=== PATIENT | male | born 1960 | race Caucasian/White ===

== ENCOUNTER 2017-11-22 20:10 | Emergency (ER) ==
[2017-11-22 20:31] VITALS: TEMP 97.8; BMI 30.7
[2017-11-22] MEDS ORDERED: CARDIZEM INJ ONE (20:51)
--- NOTE | 2017-11-22 20:52 | ED.PDOC ---
General ED Provider: Dr. KRIS POLO-ER Chief Complaint: Shortness of Air Stated Complaint: im sob for the past few days Time Seen by Physician: 20:50 Mode of Arrival: Walk-In Information Source: Patient Exam Limitations: No limitations Nursing and Triage Documentation Reviewed and Agree: Yes Does patient meet sepsis criteria?: No System Inflammatory Response Syndrome: Not Applicable Sepsis Protocol: For patient's 13 years and over: Temp is 96.8 and below OR 101 and greater Pulse >90 BPM Resp >20/minute Acutely Altered Mental Status Are patient's symptoms suggestive of a new infection, such as: -Pneumonia -Skin, Soft Tissue -Endocarditis -UTI -Bone, Joint Infection -Implantable Device -Acute Abdominal Infection -Wound Infection -Meningitis -Blood Stream Catheter Infection -Unknown Cardiovascular Complaint Exam - Palpitations Complaint/Exam Onset/Duration: 3 days Symptoms Are: Still present Timing: Constant Initial Severity: Mild Current Severity: Moderate Character: Reports: Fast, Irregular, Pounding Aggravating: Reports: None Alleviating: Reports: None Associated Signs and Symptoms: Reports: Shortness of breath Review of Systems - Review Of Systems Constitutional: Reports: No symptoms Eyes: Reports: No symptoms Ears, Nose, Mouth, Throat: Reports: No symptoms Respiratory: Reports: Short of air Cardiac: Reports: No symptoms GI: Reports: No symptoms : Reports: No symptoms Musculoskeletal: Reports: No symptoms Skin: Reports: No symptoms Neurological: Reports: No symptoms Endocrine: Reports: No symptoms Hematologic/Lymphatic: Reports: No symptoms All Other Systems: Reviewed and Negative Past Medical History - Past Medical History Previously Healthy: Yes Endocrine: Reports: Unknown Cardiovascular: Reports: Unknown Respiratory: Reports: Unknown Hematological: Reports: Unknown Gastrointestinal: Reports: Unknown Genitourinary: Reports: Unknown Neuro/Psych: Reports: Unknown Musculoskeletal: Reports: Unknown Cancer: Reports: Unknown - Surgical History General Surgical History: Reports: Unknown - Family History Family History: Reports: Unknown - Social History Smoking Status: Former smoker Hx Substance Use: No Alcohol Screening: Occasionally - Immunizations Tetanus Shot up to Date: (UNKNOWN) Physical Exam - Physical Exam Appearance: Well-appearing Eyes: UMER, EOMI, Conjunctiva clear ENT: Ears normal, Nose normal, Oropharynx normal Neck: Supple Respiratory: Airway patent, Breath sounds clear, Breath sounds equal, Respirations nonlabored Cardiovascular: RRR GI/: Soft, Nontender, No masses, Bowel sounds normal, No Organomegaly Musculoskeletal: Normal strength, ROM intact, No edema, No calf tenderness Skin: Warm, Dry, Normal color Neurological: Sensation intact, Motor intact, Reflexes intact, Cranial nerves intact, Alert, Oriented Psychiatric: Affect appropriate, Mood appropriate, Anxious Interpretation - EKG Interpretation Time of EKG #1: 21:18 Rate: Tachy Rhythm: Other Jewell: NL Interpretation: afib wtih rvr Physician Notification - Case Discussed Physician Notified: dr [email or web address] Time of Notification: 21:45 Critical Care Note - Critical Care Note Total Time (mins): 30 Course - Course Hematology/Chemistry: 11/22/17 20:42 11/22/17 20:42 Orders, Labs, Meds: Lab Review 11/22/17 11/22/17 20:42 20:42 WBC 11.71 H RBC 5.24 Hgb 14.9 Hct 45.3 MCV 86.5 MCH 28.4 MCHC 32.9 RDW Coeff of Deo 14.4 Plt Count 257 Immature Gran % (Auto) 0.4 Neut % (Auto) 59.2 Lymph % (Auto) 25.4 [place] % (Auto) 12.3 H Eos % (Auto) 1.9 Baso % (Auto) 0.8 Immature Gran # (Auto) 0.1 Neut # (Auto) 6.9 Lymph # (Auto) 3.0 [place] # (Auto) 1.4 Eos # (Auto) 0.2 Baso # (Auto) 0.1 Sodium 142 Potassium 4.3 Chloride 109 H Carbon Dioxide 23 Anion Gap 14.3 BUN 19 H Creatinine 0.75 Estimated GFR (MDRD) 108.00 BUN/Creatinine Ratio 25.33 Glucose 96 Calcium 9.3 Total Bilirubin 0.6 AST 53 H ALT 67 Alkaline Phosphatase 126 Total Protein 7.2 Albumin 3.5 Globulin 3.7 Albumin/Globulin Ratio 0.95 Orders Category Date Time Status EKG-(ED ONLY) Stat CARDIO 11/22/17 20:39 Completed TRANSFER TO OUTSIDE FACILITY .TO [facility] 11/22/17 20:53 Active (ROBLESBHAVANI) WRITE TRANSFER/SBAR NOTE ONCE CARE 11/22/17 20:53 Active DISCHARGE ASSESSMENT ONCE DISCHARGE 11/22/17 20:53 Active WRITE DISCHARGE NOTE ONCE DISCHARGE 11/22/17 20:53 Active IV [ED IV/MEDIPORT/POWERPORT] .ONCE EMERGENCY 11/22/17 20:40 Active B-TYPE NATRIURETIC PEPTIDE Stat LAB 11/22/17 20:42 Received CBC W/ AUTO DIFF Stat LAB 11/22/17 20:42 Completed COMPREHENSIVE METABOLIC PANEL Stat LAB 11/22/17 20:42 Completed CREATINE KINASE Stat LAB 11/22/17 20:42 Received D-DIMER Stat LAB 11/22/17 20:42 Received FREE T4 (FREE THYROXINE) Stat LAB 11/22/17 20:42 Received TROPONIN I Stat LAB 11/22/17 20:42 Received TSH [THYROID STIMULATING HORMONE] Stat LAB 11/22/17 20:42 Received 0.9 % Sodium Chloride [Saline Flush] MEDS 11/22/17 20:40 Ordered 1 syr IVF PRN PRN 0.9 % Sodium Chloride [Sodium Chloride] 100 ml MEDS 11/22/17 21:00 Ordered Diltiazem HCl Inj [Cardizem Inj] 125 mg IV 10 mg/hr Diltiazem HCl Inj [Cardizem Inj] MEDS 11/22/17 20:51 Discontinued 150 mg .ROUTE .STK-MED ONE CXR [CHEST, 1V AP ONLY] Stat RADS 11/22/17 20:41 Taken Medications Generic Name Dose Route Start Last Admin Trade Name Freq PRN Reason Stop Dose Admin Diltiazem HCl 125 mg/ Sodium 125 mls @ 10 mls/hr 11/22/17 21:00 11/22/17 21: 01 Chloride IV 10 mg/hr .[id number] JACINDA 10 mls/hr Administration Protocol 10 MG/HR Sodium Chloride 1 syr 11/22/17 20:40 11/22/17 20:59 Saline Flush IVF 1 syr PRN PRN Administration To flush IV Vital Signs: Temp Pulse Resp BP Pulse Ox 11/22/17 21:01 163 H 20 172/120 H 11/22/17 20:11 97.8 F 83 28 H 152/112 H 96 INDRE Risk Score INDER Risk Score: Risk Score Odds of by 30D 0 0.1 (0.1-0.2) 1 0.3 (0.2-0.3) 2 0.4 (0.3-0.5) 3 0.7 (0.6-0.9) 4 1.2 (1.0-1.5) 5 2.2 (1.9-2.6) 6 3.0 (2.5-3.6) 7 4.8 (3.8-6.1) Departure - Departure Time of Disposition: 20:52 Disposition: TSF SHORT-TRM HOSP Discharge Problem: Atrial fibrillation Qualifiers: Atrial fibrillation type: unspecified Qualified Code(s): I48.91 - Unspecified atrial fibrillation Instructions: A-fib (Atrial Fibrillation) (ED) Condition: Fair Pt referred to PMD for follow-up: No IPMP verified?: No Allergies/Adverse Reactions: Allergies No Known Drug Allergies Adverse Reaction (Verified 11/22/17 20:22) Home Medications: Ambulatory Orders Naproxen Sodium [Aleve] 220 mg PO BID PRN 11/22/17 Transfer Form Completed: Yes Disposition Discussed With: Patient
[2017-11-22] MEDS ORDERED: CARDIZEM INJ 125 MG in SODIUM CHLORIDE 100 ML IV SCH (21:00)
[2017-11-22 21:03] VITALS: BP 172/120
--- NOTE | 2017-11-23 08:12 | DI ---
Exam: Single view of the chest. Comparison: None available. Reason for exam: Dyspnea. FINDINGS: There is blunting of the left costophrenic angle. No pneumothorax. Cardiac silhouette is mildly prominent size. Impression: Imaging findings are consistent with left lower lobe effusion with overlying atelectasis /pneumonia and mild pulmonary vascular congestion
== END 2017-11-22 21:45 | disposition short-term general hospital (02) ==
LOC: ED 20:10
DX: I48.91 Unspecified atrial fibrillation (principal); R06.02 Shortness of breath
CPT/HCPCS: 36415; 80053; 82550; 83880; 84439; 84443; 84484; 85025; 85379; 93005; 93010; 96365; 99285